=== PATIENT | female | born 1985 | race Two or more races ===

== ENCOUNTER 2023-10-13 22:06 | Emergency (ER) | payer OTHER, SELFPAY ==
[2023-10-13 22:08] VITALS: BP 133/94; BMI 34.8
--- NOTE | 2023-10-13 22:52 | ED.GENMED ---
History of Present Illness
<Heidi Alan PA-C - Last Filed: 10/14/23 00:54>
General
Chief Complaint: Back Pain
Source: patient and family (Son at bedside and translating)
Exam Limitations: none
Time Seen by Provider: 10/13/23 22:31
Nursing documentation reviewed up to this point in time: agreed with
History of Present Illness
History of Present Illness:
Patient is a 38-year-old female with no significant past medical history presenting for evaluation of lower back discomfort. Patient states that within the past week she started noticing a gradual onset pain in lower back worse with sitting and
walking. She was in the shower a few days ago she felt a bump on her left lower back near her buttocks. Patient denies any associated fever, chills, nausea, vomiting. Patient states there is no drainage from the area. Patient states she feels
well overall. Patient denies any numbness/tingling in lower extremities, bowel/bladder incontinence. No known trauma or inciting event.
Patient denies any similar symptoms in the past.
Review of Systems
<Heidi Alan PA-C - Last Filed: 10/14/23 00:54>
Review of Systems
Allergies reviewed?: Yes
All Other Systems: ROS reviewed and negative except as documented in HPI and ROS
Phy Exam
<Heidi Alan PA-C - Last Filed: 10/14/23 00:54>
Physical Exam
Physical Exam:
Vitals: Hypertensive, otherwise vital signs stable. Afebrile
General: Patient is well appearing, no acute distress
Skin: Warm and dry, no rashes or lesions
Head: Normocephalic, atraumatic
Eyes: Sclera nonicteric. EOMs intact. No nystagmus.
Throat: Protecting airway
Neck: Normal ROM, no cervical spine tenderness, no meningismus
Cardiac: Regular rate and rhythm, no murmurs.
Pulm: Normal respiratory effort, no wheezes, rales, rhonchi heard on exam.
Abdomen: Abdomen soft. No abdominal tenderness.
Back: No cervical spine or midline spinal tenderness. Approximately 1 cm firm subcutaneous nodule with associated tenderness just superior to left gluteal cleft without any surrounding erythema, induration or fluctuance.
Extremities: No evidence of cyanosis or edema
Neuro: AAOx3. CN II-XII intact. No focal neurologic deficits. Moving all extremities. Strength 5 out of 5 in upper and lower extremities. Sensation fully intact
Psychiatric: Normal affect.
Course
<Heidi Alan PA-C - Last Filed: 10/14/23 00:54>
Vital Signs
Initial and Last Documented VS:
Initial Vital Signs
Temp Pulse Resp BP Pulse Ox
99.2 F 94 16 133/94 98
10/13/23 22:08 10/13/23 22:08 10/13/23 22:08 10/13/23 22:08 10/13/23 22:08
Last Documented Vital Signs
Temp Pulse Resp BP Pulse Ox
99.2 F 94 16 133/94 98
10/13/23 22:08 10/13/23 22:08 10/13/23 22:08 10/13/23 22:08 10/13/23 22:08
<Ian Rocha DO - Last Filed: 10/13/23 23:42>
Vital Signs
Initial and Last Documented VS:
Initial Vital Signs
Temp Pulse Resp BP Pulse Ox
99.2 F 94 16 133/94 98
10/13/23 22:08 10/13/23 22:08 10/13/23 22:08 10/13/23 22:08 10/13/23 22:08
Last Documented Vital Signs
Temp Pulse Resp BP Pulse Ox
99.2 F 94 16 133/94 98
10/13/23 22:08 10/13/23 22:08 10/13/23 22:08 10/13/23 22:08 10/13/23 22:08
<Heidi Alan PA-C - Last Filed: 10/14/23 00:54>
MDM/Problems Addressed
Differential Diagnosis Includes:
Not limited to: Cyst, lipoma, abscess, malignancy, etc.
MDM/Problems Addressed:
Patient is a 38-year-old female with no significant past medical history presenting for gradually worsening pain in left lower back just superior to gluteal cleft. No recent trauma or inciting event pain exacerbated with walking and sitting. Did
notice a small bump earlier this week and came to emergency department for further evaluation. No associated fevers, chills, nausea, vomiting, or other infectious symptoms. Patient denies any drainage from area. Patient has no red flag back's
pain symptoms including numbness/tingling in lower extremities, bowel/bladder incontinence, history of IV drug use. Patient's vitals she is afebrile. Physical exam as above. Patient is well-appearing, in no apparent distress. She has no cervical
spine or midline spinal tenderness. She is walking with steady gait. No focal neurologic deficits. She does have a palpable approximate 1 cm somewhat firm deep subcutaneous nodule of her left lower back/buttock just superior to gluteal cleft.
There is absolutely no overlying warmth, erythema, fluctuance, or induration. There is no drainage. Suspect likely deep cyst vs lipoma. No evidence of current infectious process. No indication for antibiotics at this time. Recommend warm
compress and close monitoring for infectious symptoms. Patient will likely require follow-up with dermatology for possible biopsy/excision. Return precautions discussed with patient at length. Dermatology referral given. Patient and patient's
son comfortable with plan. Patient seen with attending physician.
Patient ambulating with steady gait while in the emergency
Chronic conditions affecting care:
N/A
Acute Exacerbation and/or Progression of Chronic Illness:
N/A
<Heidi Alan PA-C - Last Filed: 10/14/23 00:54>
*Pulse Oximetry
Patient hypoxic: no
*EKG
Interpreted by ED Provider?: NA
*Signal Maintenance Technician Interpretation
Rate: Signal Maintenance Technician- N/A
*Critical Care Note
Total Time (30-74mins, 75-104mins- exclusive of procedures): Not Applicable
ED Attending Note
<Heidi Alan PA-C - Last Filed: 10/14/23 00:54>
-
Portions of this chart may have been created with voice recognition software.� Occasional wrong word or��sound alike� substitutions may have occurred due to the inherent limitations of voice recognition software.
<Ian Rohca DO - Last Filed: 10/13/23 23:42>
ED Attending Note
Patient seen and examined by attending physician: Yes
I performed the substantive portion of visit, reviewed & personally made and approve the management plan that is documented in note by myself or JASBIR.: Yes
Discharge Plan
Departure
Patient Disposition: Home (Routine Discharge)
Date of Disposition: 10/13/23
Time of Disposition: 23:29
Patient with high blood pressure during this ER visit?: Yes
Condition: Good
Covid-19: Not Applicable
Discharge Problem:
Lipoma of lower back
Instructions: Lipoma , BLOOD PRESSURE
Referrals:
Angel Baker MD [Consulting Staff] - Call in 1-3 days for appt
Activity Restrictions/Additional Instructions:
RETURN TO THE EMERGENCY DEPARTMENT WITH FEVERS, CHILLS, INTRACTABLE NAUSEA/VOMITING, SEVERE PAIN, SIGNIFICANT CHANGE IS SIZE, TENDERNESS, OR WARMTH IN LOWER BACK, OR ANY OTHER CONCERNS
-As discussed�you should apply warm compresses to the affected area of your lower back. You take Motrin and/or Tylenol as needed for discomfort.
-It is important to monitor for signs of infection and return promptly with any symptoms of infection including: fever, chills, warmth, pus drainage, significant pain, swelling, or redness of area
You should follow-up with a motor tester for further evaluation/management.
Interventions
Interventions:
*Risk Screen - Suicide Last Done: 10/13/23 22:08
*General Assessment Last Done: 10/13/23 23:22
*Neglect/Abuse Screening Last Done: 10/13/23 22:08
*ED COVID-19 Vaccine History Last Done: 10/13/23 23:22
*Nursing Disposition Last Done: 10/13/23 23:49
ED-Musculoskeletal Assessment Last Done: 10/13/23 22:50
Discharge Date and Time
Discharge Date/Time: 10/13/23 23:50
Print Language: MAURITANIAN
== END 2023-10-13 23:50 | disposition home or self-care (01) ==
LOC: EMR 22:06
PROVIDERS: EMERGENCY PHYSICIAN Emergency Medicine; FAMILY PHYSICIAN Internal Medicine
DX: D17.1 Benign lipomatous neoplasm of skin and subcutaneous tissue of trunk (principal)
CPT/HCPCS: 99282